=== PATIENT | female | born 1990 | race Caucasian/White ===

== ENCOUNTER 2022-03-08 09:44 | Outpatient (CLI) | payer BC, SELFPAY ==
[2022-03-08] MEDS: RHO(D) IMMUNE GLOBULIN 300 MCG/2 ML SYRINGE IM (13:45)
== END 2022-03-08 09:45 | disposition home or self-care (01) ==
PROVIDERS: PCP Family Medicine; Visit Provider Obstetrics & Gynecology
DX: Z34.90 Encounter for supervision of normal pregnancy, unspecified, unspecified trimester (principal); Z3A.00 Weeks of gestation of pregnancy not specified
CPT/HCPCS: 36415; 85461; 90384; 96372; J2790

== ENCOUNTER 2022-05-07 19:44 | Outpatient (CLI) | payer BC, SELFPAY ==
[2022-05-07 20:25] VITALS: BP 124/86; PULSE 88
== END 2022-05-07 20:30 | disposition home or self-care (01) ==
PROVIDERS: PCP Family Medicine; Visit Provider Obstetrics & Gynecology
DX: O42.913 Preterm premature rupture of membranes, unspecified as to length of time between rupture and onset of labor, third trimester (principal); Z3A.36 36 weeks gestation of pregnancy
CPT/HCPCS: 59025; 84112

== ENCOUNTER 2022-05-26 14:15 | Inpatient (IN) | payer BC, SELFPAY ==
[2022-05-26] VITALS (68 sets, daily range): BP systolic 106–153; BP diastolic 60–102; PULSE 71–106; RESP 18; TEMP 36.7–37.2; O2SAT 87–100; BMI 34.4
[2022-05-26 15:34] LABS: Basophils Percent Auto 0.3 % (0.2-1.2); Eosinophils Absolute Auto 0.1 K/mm3 (0-0.3); Eosinophils Percent Auto 0.5 % (0-4.4); Hematocrit 35.1 % (37.0-47.0); Hemoglobin 12.1 g/dL (12.0-15.0); Immature Granulocyte Absolute 0.05 K/mm3 (0.00-0.031); Immature Granulocyte Percent A 0.4 % (0-0.5); Lymphocytes Absolute Auto 1.34 K/mm3 (0.9-3.2); Lymphocytes Percent Auto 10.9 % (18.3-44.2); Mean Corpuscular HGB Conc 34.5 g/dl (32-36); Mean Corpuscular Hemoglobin 31.7 pg (26-34); Mean Corpuscular Volume 91.9 fl (80-100); Mean Platelet Volume 10.1 fl (7.4-10.4); Monocytes Absolute Auto 0.6 K/mm3 (0.1-0.6); Monocytes Percent Auto 5.1 % (2.6-8.5); Neutrophils Absolute Auto 10.2 K/mm3 (1.3-6.7); Neutrophils Percent Auto 82.8 % (45.5-73.1); Platelet Count Result 241 k/mm3 (150-375); Red Blood Count 3.82 M/mm3 (4.2-5.4); Red Cell Distribution Width 12.6 % (11.5-14.5); White Blood Count 12.3 K/mm3 (4.5-10.0)
--- NOTE | 2022-05-26 15:57 | LDADM ---
This patient, Cuca Kraus, was admitted to Labor/Delivery/Recovery 106 on 05/26/22 at 14:15. Plans for labor, pain management and were discussed with patient. Patient/family oriented to hospital policies and general routines including ID bracelet, bed and alarms, visiting hours, pain management, procedures, bathroom and other care routines, personal items, smoking policy, room service/diet and guest tray routines, security routines, and visiting hours. Patient/Family are encouraged to report perceived risks to care and to ask questions if they do not understand what they are told or what they should do. See OBIX for further documentation.
--- NOTE | 2022-05-26 16:46 | WPDANESEPP ---
Anes - Eval Pre Procedure Procedure: Labor epidural Date/Time: 05/26/22 16:46 Surgeon: sarbjit Preop Diagnosis: Abd painn with contractions Pre Op Diagnosis: Leaking Fluid Patient Data Age: 31 Gender: F Height: 1.63 m Weight: 91 kg Last Vital Signs Temp 98.1 F 05/26/22 16:00 Pulse 86 05/26/22 16:34 BP 119/77 05/26/22 16:34 Allergies Allergy/AdvReac Type Severity Reaction Status Date / Time No Known Allergies Allergy Verified 05/03/22 12:37 Home Medications Medication Instructions Recorded Confirmed Type prenat.vits,tracy,bae-[id number]-[id number] 1 tablet PO DAILY 09/23/21 05/26/22 History Laboratory Tests 05/26/22 05/26/22 05/26/22 15:20 15:20 15:20 WBC 12.3 K/mm3 H K/mm3 (4.5-10.0) RBC 3.82 M/mm3 L M/mm3 (4.2-5.4) Hgb 12.1 g/dL g/dL (12.0-15.0) Hct 35.1 % L % (37.0-47.0) MCV 91.9 fl fl (80-100) MCH 31.7 pg pg (26-34) MCHC 34.5 g/dl g/dl (32-36) RDW 12.6 % % (11.5-14.5) Plt Count 241 k/mm3 k/mm3 (150-375) MPV 10.1 fl fl (7.4-10.4) Immature Gran % (Auto) 0.4 % % (0-0.5) Neut % (Auto) 82.8 % H % (45.5-73.1) Lymph % (Auto) 10.9 % L % (18.3-44.2) [place] % (Auto) 5.1 % % (2.6-8.5) Eos % (Auto) 0.5 % % (0-4.4) Baso % (Auto) 0.3 % % (0.2-1.2) Lymph # (Auto) 1.34 K/mm3 K/mm3 (0.9-3.2) [place] # (Auto) 0.6 K/mm3 K/mm3 (0.1-0.6) Eos # (Auto) 0.1 K/mm3 K/mm3 (0-0.3) Baso # (Auto) 0.0 K/mm3 K/mm3 (0.0-0.1) Abs Immat Gran (auto) 0.05 K/mm3 H K/mm3 (0.00-0.031) Absolute Neuts (auto) 10.2 K/mm3 H K/mm3 (1.3-6.7) Absolute Nucleated RBC 0.0 K/mm3 K/mm3 (0.0-0.012) Nucleated RBC % 0.0 % % (0.0-0.2) Sodium Potassium Chloride Carbon Dioxide Anion Gap BUN Creatinine Estim Creat Clear Calc Estimated GFR Glucose Uric Acid Calcium Total Bilirubin AST ALT Alkaline Phosphatase Total Protein Albumin RPR Pending Blood Type O Negative Antibody Screen Positive Antibody Identification Pending Antigen Identification Pending OMI, IgG Interpret Pending OMI, Poly Interpret Pending OMI, Complement Interp Pending 05/26/22 16:04 WBC RBC Hgb Hct MCV MCH MCHC RDW Plt Count MPV Immature Gran % (Auto) Neut % (Auto) Lymph % (Auto) [place] % (Auto) Eos % (Auto) Baso % (Auto) Lymph # (Auto) [place] # (Auto) Eos # (Auto) Baso # (Auto) Abs Immat Gran (auto) Absolute Neuts (auto) Absolute Nucleated RBC Nucleated RBC % Sodium Pending Potassium Pending Chloride Pending Carbon Dioxide Pending Anion Gap Pending BUN Pending Creatinine Pending Estim Creat Clear Calc Pending Estimated GFR Pending Glucose Pending Uric Acid Pending Calcium Pending Total Bilirubin Pending AST Pending ALT Pending Alkaline Phosphatase Pending Total Protein Pending Albumin Pending RPR Blood Type Antibody Screen Antibody Identification Antigen Identification OMI, IgG Interpret OMI, Poly Interpret OMI, Complement Interp Patient hx anesthesia problems: none Family hx anesthesia problems: none Results Review: All pre-operative results and documents have been reviewed as part of the pre-operative evaluation. [facility] Past Medical History Medical History
[2022-05-26 17:06] LABS: Alanine Aminotransferase 23 U/L (6-35); Albumin Level 3.6 g/dL (3.5-5.1); Alkaline Phosphatase 178 U/L (38-126); Anion Gap 5 mmol/L (8-16); Aspartate Amino Transferase 24 U/L (14-36); Bilirubin,Total 0.4 mg/dL (0.2-1.3); Blood Urea Nitrogen 11 mg/dL (7-17); Carbon Dioxide 21 mmol/L (22-30); Chloride 106 mmol/L (98-107); Estimated CRCL calculation 109 ml/min; Estimated Glomerular Filt Rate > 60; Glucose 100 mg/dL (65-110); Sodium 132 mmol/L (137-145); Uric Acid 3.6 mg/dL (2.5-7.5)
--- NOTE | 2022-05-26 18:05 | PM.OBTRLD ---
OB - Triage/Final Diagnosis Visit Information Date of evaluation: 05/26/22 Reason for evaluation: other ( -induced hypertension) Comments/Additional reasons for admission: I have assessed the risk for this patient, Cuca Kraus, and determined that she would benefit from observation care. Evaluation Laboratory results: Laboratory Tests 05/26/22 05/26/22 05/26/22 15:20 15:20 16:04 WBC 12.3 H RBC 3.82 L Hgb 12.1 Hct 35.1 L MCV 91.9 MCH 31.7 MCHC 34.5 RDW 12.6 Plt Count 241 MPV 10.1 Immature Gran % (Auto) 0.4 Neut % (Auto) 82.8 H Lymph % (Auto) 10.9 L [place] % (Auto) 5.1 Eos % (Auto) 0.5 Baso % (Auto) 0.3 Lymph # (Auto) 1.34 [place] # (Auto) 0.6 Eos # (Auto) 0.1 Baso # (Auto) 0.0 Abs Immat Gran (auto) 0.05 H Absolute Neuts (auto) 10.2 H Absolute Nucleated RBC 0.0 Nucleated RBC % 0.0 Sodium 132 L Potassium 4.0 Chloride 106 Carbon Dioxide 21 L Anion Gap 5 L BUN 11 Creatinine 0.70 Estim Creat Clear Calc 109 Estimated GFR > 60 Glucose 100 Uric Acid 3.6 Calcium 9.0 Total Bilirubin 0.4 AST 24 ALT 23 Alkaline Phosphatase 178 H Total Protein 7.0 Albumin 3.6 Blood Type O Negative Antibody Screen Positive Antibody Identification Passive Due to RH Imm Glob Antigen Identification Cancelled OMI, IgG Interpret Not Performed OMI, Poly Interpret Negative OMI, Complement Interp Not Performed Vital signs: Vital Signs - 24 hr 05/26/22 15:06 05/26/22 15:24 05/26/22 15:31 Temperature Pulse Rate 89 106 H 91 Blood Pressure 144/100 H 139/102 H 131/96 H 05/26/22 15:46 05/26/22 16:01 05/26/22 16:00 Temperature 98.1 F Pulse Rate 95 91 Blood Pressure 125/93 H 127/91 H 05/26/22 16:34 05/26/22 17:31 05/26/22 17:56 Temperature 98.9 F Pulse Rate 86 84 Blood Pressure 119/77 132/97 H 05/26/22 18:01 Temperature Pulse Rate 80 Blood Pressure 135/88
--- NOTE | 2022-05-26 18:13 | PM.IMHP ---
H&P: HPI History of Present Illness Date/Time: 05/26/22 18:13 Chief Complaint: labor term Narrative: this is a 30 year 1 para 0 last menstrual period was 08/24/2021, EDC is 05/31/2022, presents at 39 weeks gestation with spontaneous rupture membranes. She is negative for group B strep has been uncomplicated. She had an abnormal diabetic screen but her 3hour was normal PMFSH Past Medical History Medical History Overweight (BMI 25.0-29.9) and not yet delivered Family History Family History Father Bladder cancer Grandparent Breast cancer Mother Hypertension Social History Social History Smoking status: Never smoker Second hand tobacco smoke exposure: No Alcohol intake: current Drinks per week: 1 Substance use: never Substance use type: does not use Spiritual care concerns: No Meds Home Medications and Allergies Home Medications Medication Instructions Recorded Confirmed Type prenat.vits,tracy,cty-mrou-fuert 1 tablet PO DAILY 09/23/21 05/26/22 History Allergies Allergy/AdvReac Type Severity Reaction Status Date / Time No Known Allergies Allergy Verified 05/03/22 12:37 Vital Signs Vital Signs - 24 hr 05/26/22 15:06 05/26/22 15:24 05/26/22 15:31 Temperature Pulse Rate 89 106 H 91 Blood Pressure 144/100 H 139/102 H 131/96 H 05/26/22 15:46 05/26/22 16:01 05/26/22 16:00 Temperature 98.1 F Pulse Rate 95 91 Blood Pressure 125/93 H 127/91 H 05/26/22 16:34 05/26/22 17:31 05/26/22 17:56 Temperature 98.9 F Pulse Rate 86 84 Blood Pressure 119/77 132/97 H 05/26/22 18:01 Temperature Pulse Rate 80 Blood Pressure 135/88 Exam GI: Auscultation: normal bowel sounds : External Female Exam: normal external appearance Speculum Exam - Vagina: normal appearance of the vagina and other ( clear fluid seen with positive ROM Plus) Speculum Exam - Cervix: normal appearance of the cervix ( cervix by nurse exam 3cm. heart tones are reassuring) Bimanual exam- vagina & uterus: enlarged H&P: Results Labs Labs: Short CBC 05/26/22 Range/Units 15:20 WBC 12.3 H (4.5-10.0) K/mm3 Hgb 12.1 (12.0-15.0) g/dL Hct 35.1 L (37.0-47.0) % Plt Count 241 (150-375) k/mm3 BMP 05/26/22 16:04 Sodium 132 L Potassium 4.0 Chloride 106 Carbon Dioxide 21 L BUN 11 Creatinine 0.70 Glucose 100 Calcium 9.0 Liver Function 05/26/22 Range/Units 16:04 Total Bilirubin 0.4 (0.2-1.3) mg/dL AST 24 (14-36) U/L ALT 23 (6-35) U/L Alkaline Phosphatase 178 H (38-126) U/L Albumin 3.6 (3.5-5.1) g/dL Assessment and Plan Assessment and plan (1) Term : Code(s): Z34.90 - Encounter for supervision of normal , unspecified, unspecified trimester Status: Acute (2) Active labor: Status: Acute Plan spontaneous vaginal delivery is expected. She has an epidural candidate
[2022-05-26] MEDS: LACTATED RINGERS 1,000 ML 300 ML IV CONT (19:45)
[2022-05-26] MEDS: LACTATED RINGERS 1,000 ML 999 ML IV CONT ×2 (22:14→23:01)
[2022-05-26] MEDS: ONDANSETRON INJ 4 MG/2 ML VIAL IV PUSH (22:33)
[2022-05-27] VITALS (61 sets, daily range): BP systolic 112–140; BP diastolic 66–102; PULSE 67–99; RESP 16–18; TEMP 36.6–37.3; O2SAT 94–100
[2022-05-27] MEDS: LACTATED RINGERS 1,000 ML 125 ML IV CONT (03:16)
[2022-05-27] MEDS: OXYTOCIN 30 UNITS/NS 500 ML 30 UNITS/500 ML BAG IV CONT (03:19)
[2022-05-27] MEDS: ONDANSETRON INJ 4 MG/2 ML VIAL IV PUSH (04:29)
--- NOTE | 2022-05-27 04:34 | PM.OBPNLAB ---
Pain Control Date/time seen: 05/27/22 04:34 Pain control: tolerating well and epidural Pelvic Exam Dilation (cm): 10 Effacement (%): 100 Amniotic membrane status: Ruptured Comments: Pushing with PP tolerating well Contractions Monitor mode: External
--- NOTE | 2022-05-27 05:15 | P.PCNOB_ITS ---
OB - Delivery Note Procedure Delivery date: 05/27/22 Induction method: None Delivery monitor: External FHT and External Uterine Route of delivery: Episiotomy description: None Laceration Description: Perineal - 2nd Degree Delivery repair: vicryl Specimen: No Quantitative Blood Loss (ml): 59 Anesthesia type: Epidural Disposition: Floor [place] Baby Date of : 05/27/22 Time of : 05:02 Weeks of gestation at delivery: 39 Infant gender: Male Weight (pounds): 8 Weight (ounces): 6 presentation: vertex position: Right Occiput Anterior Placenta delivery description: Spontaneous Cord Vessel Description: 3 Vessels score one minute: 7 score five minutes: 9
[2022-05-27] MEDS: OXYTOCIN 30 UNITS/NS 500 ML 30 UNITS/500 ML BAG 125 UNITS IV CONT (05:41)
[2022-05-27 07:50] LABS: Rapid Plasma Reagin Non-Reactive (NonReactive)
--- NOTE | 2022-05-27 08:56 | PC.NURSE ---
0892 Orientation focused primary RN Nini reported mother is skin to skin with after attempting to breastfeed.
[2022-05-27] MEDS: IBUPROFEN 600 MG TABLET PO ×2 (10:17→17:57)
--- NOTE | 2022-05-27 10:23 | PC.NURSE ---
[id number] Introductions were made, then consulted with patient to assess needs related to . Mother led the conversation with her experience feeding her so far. Infant is in the bassinet swaddled and sleeping. Mother works well with her infant with encouragement and education after mother voiced had attempted to breastfeed around 0815 but wouldn't wake up. RN unwrapped infant, then placed skin to skin encouraging understanding of the benefits of skin to skin (unwrapping infant and placing vertically on her chest), responsive feeding and how to watch for early feeding signs, frequency of feeding on demand about every 8-12 times in 24 hours (every 2-3 hours), milk production, duration of feeding, signs of adequate intake/output and how to record on the feeding sheet. Mother demonstrated teaching of hand expression to encourage with colostrum. Mother will benefit having this information practiced and reviewed. Reviewed positioning and ear, shoulder, hip alignment, supporting the breast, asymmetrical latch (off-center), and leading with the chin with a big open side gape. Infant latched optimally to the right breast in football position. Education given to mother of how to visualize suck/swallow ratios, actively drinking at the breast, and maintaining effective . Infant was able to maintain latch without discomfort to mother. Nipple care reviewed with optimal latch and good positioning. Reviewed good handwashing when or touching the breast/nipples to prevent infection. Resources used to facilitate learning were used with the tool. Mother voiced understanding of responsive feedings, stimulating with skin to skin, hand expressed colostrum, talking to infant to encourage if it has been 2 -3 hours since the start of the last , to call if does not latch or there is discomfort with . Reported to the primary RN.
[2022-05-27] MEDS: DOCUSATE SODIUM 100 MG CAPSULE PO (10:26)
[2022-05-27] MEDS: MULTIVIT/MIN/PREN/FOL AC/IRON TABLET 1 TAB PO (10:26)
--- NOTE | 2022-05-27 13:43 | PC.NURSE ---
[id number] Consulted with patient to assess needs related to . Mother led conversation with her experience with feeding baby so far and states she fed her infant on the left breast with no pain. Mother works well with her infant. is crying. RN assessed diaper and discovered a wet diaper in two areas. Reviewed working with , breast, nipples and how to protect the nipples with an optimal deep latch, good positioning, and good hand washing. Encouraged understanding the benefits of skin to skin, responding to feeding cues, frequencies of feeding 8-12 times in 24 hours (approximately 2-3 hours), duration of feedings, milk production, intake/output feeding sheet and signs of adequate intake encouraging swallowing at the breast. Reviewed positioning and alignment, supporting breast, off-centered (asymmetrical latch) and leading with the chin with big open wide gape. Infant latched optimally to the right breast in football position. Education given to mother of how to visualize suck/swallow ratios and drinking at the breast. was able to maintain latch without discomfort to mother. Nipple care reviewed with optimal latch and good positioning. Mother voiced understanding of the education shared, calling for assistance if the infant does not latch or if there is discomfort with . Reported to the primary RN.
[2022-05-27] MEDS: ACETAMINOPHEN 325 MG TABLET 650 MG PO (14:44)
[2022-05-28] VITALS: BP 140/78; PULSE 76; RESP 18; TEMP 37.1
[2022-05-28] MEDS: ACETAMINOPHEN 325 MG TABLET 650 MG PO ×2 (00:30→22:14)
[2022-05-28] MEDS: LANOLIN (LANSINOH) 7.5 GM CREAM 1 APPLIC TOPICAL (00:30)
[2022-05-28] MEDS: WITCH HAZEL 40 PADS 1 PAD TOPICAL (00:30)
[2022-05-28] MEDS: IBUPROFEN 600 MG TABLET PO ×3 (00:31→22:15)
[2022-05-28 04:00] VITALS: BP 115/80; PULSE 66; RESP 18; TEMP 36.8
[2022-05-28 05:45] LABS: Hemoglobin 9.8 g/dL (12.0-15.0)
--- NOTE | 2022-05-28 07:10 | PM.OBPNVD ---
OB - PN: Subj Subjective Date/time seen: 05/28/22 07:10 Patient comments: no complaints and pain well controlled baby status: doing well and nursing well OB - PN: Obj Data Labs CBC & Chem 7: 05/28/22 03:34 05/26/22 16:04 Labs: Laboratory Results - last 24 hr 05/26/22 05/28/22 15:20 03:34 Hgb 9.8 L Hct 29.0 L RPR Non-reactive OB - PN A/P Assessment and Plan (1) Term : Code(s): Z34.90 - Encounter for supervision of normal , unspecified, unspecified trimester Status: Acute Plan day: 1 Plan: routine care Time Spent With Patient Time: Total time spent is greater than 50% in coordination of care (as documented) at patient's floor/unit and/or counseling patient: Time with patient: less than 15 minutes
[2022-05-28 07:35] VITALS: BP 121/77; PULSE 61; RESP 18; TEMP 36.7; O2SAT 100
--- NOTE | 2022-05-28 09:16 | WPDANLDPN2 ---
Anes-Prog Note L&D Date/Time: 05/28/22 09:16 Neuro status: Neuro function grossly intact. Vital Signs: Last Vital Signs Temp 36.7 C 05/28/22 07:35 Pulse 61 05/28/22 07:35 Resp 18 05/28/22 07:35 BP 121/77 05/28/22 07:35 Pulse Ox 100 05/28/22 07:35 O2 Del Method Room Air 05/28/22 04:00 Pain score (VAS): 0 I/O: Intake & Output 05/27/22 05/28/22 05/28/22 23:59 07:59 15:59 Intake Total 240 Balance 240 Patient feedback: Patient satisfied with anesthetic care.
[2022-05-28] MEDS: MULTIVIT/MIN/PREN/FOL AC/IRON TABLET 1 TAB PO (09:20)
[2022-05-28] MEDS: POLYSACCHARIDE IRON COMPLEX 150 MG CAPSULE PO ×2 (09:20→19:00)
--- NOTE | 2022-05-28 17:12 | PC.NURSE ---
[id number] Consulted with patient to assess needs related to . Mother led conversation with her experience with feeding baby so far and states last night was fussy and she started supplementing with formula. Reviewed protecting the milk supply with good stimulation for milk production, the risks of bottle feeding reducing the milk supply if breast are not stimulated using the supply and demand production needed. Mother states she is able to latch infant visualizing suck/swallowing, denies pain. If wants to eat more mother feeds the bottle. Discussed the risks to the milk supply if mother is not when infant is hungry. Encouraged frequency of 2-3 hours watching for feeding cues, maintaining a deep latch with swallowing for 10-20 min on each breast. Mother voiced understanding of the education shared, calling for assistance if the infant does not latch or if there is discomfort with . Reported to the primary RN.
[2022-05-28 18:45] VITALS: BP 129/83; PULSE 74; RESP 18; TEMP 36.6
--- NOTE | 2022-05-29 06:17 | PM.DS ---
DS: Admitting Diagnosis Discharge Date Admitting Diagnosis term in active labor DS: Discharge Diagnosis Discharge Diagnosis (1) Active labor: Status: Acute (2) Term : Code(s): Z34.90 - Encounter for supervision of normal , unspecified, unspecified trimester Status: Acute Plan home. Follow-up 6 weeks DS: Summary Hospital Course Reason for hospitalization: active labor at term Hospital Course: patient was admitted in active labor at term. She underwent spontaneous vaginal delivery. Her course was unremarkable over the next 48hours. She remained afebrile. She was , ambulating, voiding without difficulty, eating regular diet, and generally without complaints. Time Spent with Patient Time attestation: Total time spent providing and/or coordinating discharge services: Discharge Plan Discharge Attending physician on discharge: Markell Owen Discharging Clinician: Markell Owen Patient Disposition: Home, Self-Care Activity: no straining and pelvic rest Diet: heart healthy Patient Instructions: Antibiotic Form Stand Alone Forms: General Discharge Information Follow-up/Referrals: Gavin George MD [Physician] - Discharge Medications: Continued prenat.vits,tracy,gey-xscf-bpucs Tablet 1 tablet PO DAILY Date of admission: 05/26/22 14:15 Primary Care Provider: Skyler Mondragon Admitting Provider: Gavin George Attending physician on admission: Gavin George Condition: Stable
--- NOTE | 2022-05-29 06:20 | PM.OBPNVD ---
OB - PN: Subj Subjective Date/time seen: 05/29/22 06:20 Patient comments: no complaints and pain well controlled baby status: doing well and nursing well OB - PN: Obj Data Labs CBC & Chem 7: 05/28/22 03:34 05/26/22 16:04 OB - PN A/P Assessment and Plan (1) Active labor: Status: Acute (2) Term : Code(s): Z34.90 - Encounter for supervision of normal , unspecified, unspecified trimester Status: Acute Time Spent With Patient Time: Total time spent is greater than 50% in coordination of care (as documented) at patient's floor/unit and/or counseling patient:
[2022-05-29] MEDS: MULTIVIT/MIN/PREN/FOL AC/IRON TABLET 1 TAB PO (07:42)
[2022-05-29] MEDS: POLYSACCHARIDE IRON COMPLEX 150 MG CAPSULE PO (07:42)
[2022-05-29] MEDS: DOCUSATE SODIUM 100 MG CAPSULE PO (07:43)
[2022-05-29] MEDS: IBUPROFEN 600 MG TABLET PO (07:43)
--- NOTE | 2022-05-29 08:37 | PC.NURSE ---
Deleted Transfer Assessment as it was a charting mistake
--- NOTE | 2022-05-29 08:46 | PM.OBPNVD ---
OB - PN: Subj Subjective Date/time seen: 05/29/22 08:46 Narrative: Pain OK. Would like to go home. OB - PN: Obj Data Labs CBC & Chem 7: 05/28/22 03:34 05/26/22 16:04 OB - PN A/P Plan Comments: A: PPD#2, doing well. P: Home to f/u 6 weeks. Exam Psych: Other: AVSS ABD soft, nontender, fundus firm EXT nontender
[2022-05-29 09:00] VITALS: BP 126/83; PULSE 70; RESP 16; TEMP 36.6; O2SAT 100
[2022-05-30 10:51] VITALS: BP 125/90; PULSE 63; RESP 18; TEMP 37.7; O2SAT 98
== END 2022-05-29 10:50 | disposition home or self-care (01) | DRG 807 ==
LOC: ANHLDR 18:16 → ANHOB2 05-29 06:19 → ANHLDR 05-30 08:24
PROVIDERS: Admitting Provider Obstetrics & Gynecology; PCP Family Medicine; Visit Provider Obstetrics & Gynecology
DX: O70.1 Second degree perineal laceration during delivery (principal); Z37.0 Single live birth; Z3A.39 39 weeks gestation of pregnancy; O36.8330 Maternal care for abnormalities of the fetal heart rate or rhythm, third trimester, not applicable or unspecified
CPT/HCPCS: 36415; 80053; 84550; 85014; 85018; 85025; 86592; 86850; 86880; 86900; 86901; A9270; J2405; J2590; J2795; J7120